=== PATIENT | male | born 1975 | race Caucasian/White ===

== ENCOUNTER 2018-05-04 22:10 | Emergency (ER) | payer BC ==
--- NOTE | 2018-05-04 23:44 | ER Document Report ---
ED Medical Screen (RME) - General Chief Complaint: Chest Pain Stated Complaint: CHEST PAIN Time Seen by Provider: 05/04/18 23:42 Mode of Arrival: Medic Information source: Patient Notes: 42-year-old male presents to ED for chest pain at 2015 this evening. He states it was when the football game first came on. He states he also had some shortness of breath and dizziness when he stood up. He said he did not know if the shortness of breath and dizziness were from anxiety from the pain or from the chest pain. He states the chest pain was off and on until about 2044 but has had no pain shortness of breath or dizziness since then. Patient is alert oriented respirations regular and unlabored speaking in full sentences. Patient states EMS told him there was a little change in his EKG is why they brought him to the emergency room. I have greeted and performed a rapid initial assessment of this patient. A comprehensive ED assessment and evaluation of the patient, analysis of test results and completion of medical decision making process will be conducted by an additional ED providers. TRAVEL OUTSIDE OF THE [place] IN LAST 30 DAYS: No - Related Data Allergies/Adverse Reactions: No Known Allergies Allergy (Verified 05/04/18 22:17) Physical Exam - Vital signs Vitals: Temp Pulse Resp BP Pulse Ox 98.6 F 86 16 130/96 H 97 05/04/18 23:02 05/04/18 23:02 05/04/18 23:02 05/04/18 23:02 05/04/18 23:02 Course - Vital Signs Vital signs: Temp Pulse Resp BP Pulse Ox 98.6 F 86 16 130/96 H 97 05/04/18 23:02 05/04/18 23:02 05/04/18 23:02 05/04/18 23:02 05/04/18 23:02 Doctor's Discharge - Discharge Referrals: SALVATORE LAIRD MD [Primary Care Provider] - Follow up as needed
[2018-05-05 00:40] LABS: ABSOLUTE BASOPHILS # (AUTO) 0.1 10^3/uL (0.0-0.2); ABSOLUTE EOSINOPHILS # (AUTO) 0.1 10^3/uL (0.0-0.6); ABSOLUTE LYMPHOCYTES (AUTO) 1.7 10^3/uL (0.5-4.7); ABSOLUTE MONOCYTES (AUTO) 0.6 10^3/uL (0.1-1.4); ABSOLUTE NEUT (AUTO) 9.9 10^3/uL (1.7-8.2); BASOPHILS % (AUTO) 0.5 % (0-2); EOSINOPHILS % (AUTO) 0.5 % (0-6); HEMATOCRIT 45.7 % (37.9-51.0); HEMOGLOBIN 15.9 g/dL (13.5-17.0); LYMPHOCYTES % (AUTO) 13.7 % (13-45); MEAN CORPUSCULAR HEMOGLOBIN 30.1 pg (27.0-33.4); MEAN CORPUSCULAR HGB CONC 34.7 g/dL (32.0-36.0); MEAN CORPUSCULAR VOLUME 87 fl (80-97); MONOCYTES % (AUTO) 5.1 % (3-13); PLATELET COUNT 220 10^3/uL (150-450); RED BLOOD COUNT 5.28 10^6/uL (4.35-5.55); RED CELL DISTRIBUTION WIDTH 13.4 % (11.5-14.0); SEGMENTED NEUTROPHILS % (AUTO) 80.2 % (42-78); TOTAL CELLS COUNTED % (AUTO) 100 %; WHITE BLOOD COUNT 12.4 10^3/uL (4.0-10.5)
[2018-05-05 00:57] LABS: ALANINE AMINOTRANSFERASE 29 U/L (21-72); ALBUMIN 4.6 g/dL (3.5-5.0); ALKALINE PHOSPHATASE 52 U/L (38-126); ANION GAP 11 (5-19); ASPARTATE AMINO TRANSFERASE 20 U/L (17-59); BILIRUBIN,DIRECT 0.5 mg/dL (0.0-0.4); BILIRUBIN,TOTAL 0.7 mg/dL (0.2-1.3); BLOOD UREA NITROGEN 20 mg/dL (7-20); CALCIUM 9.7 mg/dL (8.4-10.2); CARBON DIOXIDE 26 mmol/L (22-30); CHLORIDE 101 mmol/L (98-107); CREATINE KINASE 139 U/L (55-170); GLUCOSE 106 mg/dL (75-110); POTASSIUM 4.4 mmol/L (3.6-5.0); SODIUM 138.1 mmol/L (137-145); TOTAL PROTEIN 7.9 g/dL (6.3-8.2)
[2018-05-05 01:09] LABS: CREATINE KINASE MB 1.18 ng/mL (<4.55)
[2018-05-05 01:12] LABS: TROPONIN I < 0.012 ng/mL
--- NOTE | 2018-05-05 02:26 | ER Document Report ---
ED Cardiac - General Chief Complaint: Chest Pain Stated Complaint: CHEST PAIN Time Seen by Provider: 05/04/18 23:42 Mode of Arrival: Medic Notes: Patient is a 42-year-old male that comes to the emergency department for chief complaint of chest pain, he states that he was sitting after working outside for a while, he states that he felt sharp stabbing pain along the right side of his chest, it was occurring intermittently, he states he stood up and felt lightheaded briefly but this then resolved. He states symptoms resolved on its own. He came by EMS, was given 324 mg of aspirin. He denies any current symptoms. He denies any nausea or vomiting, shortness of breath. He denies any daily medications, he denies smoking, drinks alcohol infrequently, he denies recreational drugs. He states his mother had CAD, denies other significant family history. TRAVEL OUTSIDE OF THE [place] IN LAST 30 DAYS: No - Related Data Allergies/Adverse Reactions: No Known Allergies Allergy (Verified 05/04/18 22:17) Past Medical History - General Information source: Patient - Social History Smoking Status: Never Smoker Chew tobacco use (# tins/day): No Frequency of alcohol use: Occasional Drug Abuse: None Lives with: Family Family History: Reviewed & Not Pertinent Patient has suicidal ideation: No Patient has homicidal ideation: No - Past Medical History Cardiac Medical History: Reports: Hx Hypercholesterolemia Renal/ Medical History: Denies: Hx Peritoneal Dialysis - Immunizations Immunizations up to date: Yes Hx Diphtheria, Pertussis, Tetanus Vaccination: Yes Review of Systems - Review of Systems Constitutional: No symptoms reported EENT: No symptoms reported Cardiovascular: See HPI Respiratory: No symptoms reported Gastrointestinal: No symptoms reported Genitourinary: No symptoms reported Male Genitourinary: No symptoms reported Musculoskeletal: See HPI Skin: No symptoms reported Hematologic/Lymphatic: No symptoms reported Neurological/Psychological: See HPI Physical Exam - Vital signs Vitals: Temp Pulse Resp BP Pulse Ox 98.6 F 86 16 130/96 H 97 05/04/18 23:02 05/04/18 23:02 05/04/18 23:02 05/04/18 23:02 05/04/18 23:02 - Notes Notes: GENERAL: Alert, interacts well. No acute distress. HEAD: Normocephalic, atraumatic. EYES: Pupils equal, round, and reactive to light. Extraocular movements intact. ENT: Oral mucosa moist, tongue midline. [Nares patent, no nasal septal hematoma , TM's intact.] NECK: Full range of motion. Supple. Trachea midline. LUNGS: Clear to auscultation bilaterally, no wheezes, rales, or rhonchi. No respiratory distress. HEART: Regular rate and rhythm. No murmur ABDOMEN: Soft, non-tender. Non-distended. Bowel sounds present in all 4 quadrants. EXTREMITIES: Moves all 4 extremities spontaneously. No edema, normal radial and dorsalis pedis pulses bilaterally. No cyanosis. BACK: no cervical, thoracic, lumbar midline tenderness. No saddle anesthesia, normal distal neurovascular exam. NEUROLOGICAL: Alert and oriented x3. Normal speech. [cranial nerves II through XII grossly intact]. PSYCH: Normal affect, normal mood. SKIN: Warm, dry, normal turgor. No rashes or lesions noted. Course - Re-evaluation Re-evalutation: EKG shows sinus rhythm, borderline Q waves laterally, no T-wave inversions or ST segment changes in consecutive leads. Patient's heart score is only 1 (family history, history of hyperlipidemia treated). He does have borderline Q waves on the EKG laterally, no acute findings. 2 sets of negative troponins. Unremarkable chest x-ray and general workup. No symptoms after arrival. Atypical symptoms with sharp pain over the right side of the chest after working outside and then brief lightheadedness after immediately standing which resolved on its own. Discussed with patient, patient is requesting to leave. However patient does state that he will follow- up both with his primary care and with cardiology and close follow-up, states he wants to get a full cardiology evaluation but he wants to go home at this time. Discussed return precautions. Patient states understanding and agreement. - Vital Signs Vital signs: Temp Pulse Resp BP Pulse Ox 98.3 F 86 12 119/75 98 05/05/18 01:59 05/04/18 23:02 05/05/18 04:02 05/05/18 04:02 05/05/18 04:02 - Laboratory Result Diagrams: 05/05/18 00:30 05/05/18 00:30 Laboratory results interpreted by me: 05/05/18 05/05/18 00:30 00:30 WBC 12.4 H Seg Neutrophils % 80.2 H Absolute Neutrophils 9.9 H Direct Bilirubin 0.5 H Discharge - Discharge Clinical Impression: Right-sided chest pain Chest pain Qualifiers: Chest pain type: unspecified Qualified Code(s): R07.9 - Chest pain, unspecified Condition: Stable Disposition: HOME, SELF-CARE Additional Instructions: Your workup to this point is reassuring. Please follow-up closely with cardiology referral. Return if you worsen including returned or worsening pain , difficulty breathing, passing out, or any other concerning or worsening symptoms. Forms: Return to Work Referrals: ALBINO KUMAR MD [ACTIVE STAFF] - 05/07/18
[2018-05-05 04:51] VITALS: BP 119/75
--- NOTE | 2018-05-05 07:47 | RADIOLOGY REPORT (SQ) ---
Chest 2 view on 05/05/2018 at 1:01 AM CLINICAL INDICATION: Chest pain COMPARISON: None FINDINGS: The lungs are clear. Cardiac, hilar and mediastinal contours are within normal limits. Pulmonary vascularity is within normal limits. No bony abnormality is noted. IMPRESSION: No active disease.
--- NOTE | 2018-05-06 15:32 | EKG REPORT ---
SEVERITY:- BORDERLINE ECG - SINUS RHYTHM PROBABLE LATERAL INFARCT, OLD : Confirmed by: Consuelo Valenzuela MD 06-May-2018 15:31:45
== END 2018-05-05 04:58 | disposition home or self-care (01) ==
LOC: ER 22:10
DX: R07.9 Chest pain, unspecified (principal); E78.00 Pure hypercholesterolemia, unspecified
CPT/HCPCS: 36415; 71046; 80053; 82550; 82553; 84484; 85025; 93005; 93010; 99285

== ENCOUNTER 2018-08-16 11:31 | Emergency (ER) | payer BC ==
[2018-08-16 11:55] VITALS: BP 132/78
--- NOTE | 2018-08-16 12:18 | ER Document Report ---
ED Extremity Problem, Lower - General Chief Complaint: Knee Pain Stated Complaint: KNEE PAIN Time Seen by Provider: 08/16/18 12:00 Mode of Arrival: Ambulatory Information source: Patient Notes: 43-year-old male presented to ED for complaint of bilateral knee pain and swelling. He states he just received injections in his knees yesterday from Dr. Pascual. He states this was a 6 shot in a series. He states he has never had any reaction to any the shots prior to this 1 and now his both knees are red swollen and painful. He states no one ever gave him in the information about this type of reaction. He states he could not walk or sleep so he came to the emergency room to get examined. TRAVEL OUTSIDE OF THE [place] IN LAST 30 DAYS: No - HPI Patient complains to provider of: Pain, Swelling Location: Knee - Bilateral knees Occurred: Yesterday - Yesterday he received Synvisc injections in both knees by orthopedics Onset/Duration: Gradual, Persistent Quality of pain: Achy, Sharp Severity: Severe Pain Level: 5 - Patient offered ibuprofen and stated he had that at home Context: Other - Injections by orthopedic and bilateral knees yesterday Recent injury: No Associated symptoms: Painful ambulation Exacerbated by: Movement, Walking Relieved by: Elevation, Ice - Related Data Allergies/Adverse Reactions: No Known Allergies Allergy (Verified 08/16/18 11:32) Past Medical History - General Information source: Patient - Social History Smoking Status: Never Smoker Cigarette use (# per day): No Chew tobacco use (# tins/day): No Smoking Education Provided: No Frequency of alcohol use: None Drug Abuse: None Occupation: [employer] Lives with: Family Family History: Reviewed & Not Pertinent Patient has suicidal ideation: No Patient has homicidal ideation: No - Past Medical History Cardiac Medical History: Reports: Hx Hypercholesterolemia Pulmonary Medical History: Reports: Hx Sleep Apnea EENT Medical History: Reports: None Neurological Medical History: Reports: None Endocrine Medical History: Reports: None Renal/ Medical History: Reports: None Malignancy Medical History: Reports None GI Medical History: Reports: None Musculoskeletal Medical History: Reports Hx Arthritis, Reports Hx Musculoskeletal Deformity, Reports Hx Musculoskeletal Trauma Skin Medical History: Reports None Psychiatric Medical History: Reports: None Traumatic Medical History: Reports: None Infectious Medical History: Reports: None Past Surgical History: Reports: Hx Orthopedic Surgery - Orthoscopic left knee - Immunizations Immunizations up to date: Yes Hx Diphtheria, Pertussis, Tetanus Vaccination: Yes History of Influenza Vaccine for 05/2017 - 10/2017 Season: Yes Review of Systems - Review of Systems Constitutional: No symptoms reported EENT: No symptoms reported Cardiovascular: No symptoms reported Respiratory: No symptoms reported Gastrointestinal: No symptoms reported Genitourinary: No symptoms reported Male Genitourinary: No symptoms reported Musculoskeletal: Joint pain - Bilateral knee, Joint swelling - Bilateral knee Skin: No symptoms reported Hematologic/Lymphatic: No symptoms reported Neurological/Psychological: No symptoms reported -: Yes All other systems reviewed and negative Physical Exam - Vital signs Vitals: Temp Pulse Resp BP Pulse Ox 98.5 F 81 18 132/78 H 100 08/16/18 11:53 08/16/18 11:53 08/16/18 11:53 08/16/18 11:53 08/16/18 11:53 Interpretation: Normal - General General appearance: Appears well, Alert - HEENT Head: Normocephalic, Atraumatic Eyes: Normal Pupils: PERRL - Respiratory Respiratory status: No respiratory distress Chest status: Nontender Breath sounds: Normal Chest palpation: Normal - Cardiovascular Rhythm: Regular Heart sounds: Normal auscultation Murmur: No - Abdominal Inspection: Normal Distension: No distension Bowel sounds: Normal Tenderness: Nontender Organomegaly: No organomegaly - Back Back: Normal, Nontender - Extremities General upper extremity: Normal inspection, Nontender, Normal color, Normal ROM, Normal temperature General lower extremity: Normal temperature, Normal weight bearing. No: Debbi's sign Knee: Tender, Pain with ROM, Patellar tendon intact, Tender joint line, Other - Pain with ambulation, swelling - Neurological Neuro grossly intact: Yes Cognition: Normal Orientation: AAOx4 Herman Coma Scale Eye Opening: Spontaneous [place] Coma Scale Verbal: Oriented Herman Coma Scale Motor: Obeys Commands Herman Coma Scale Total: 15 Speech: Normal Motor strength normal: LUE, RUE, LLE, RLE Sensory: Normal - Psychological Associated symptoms: Normal affect, Normal mood - Skin Skin Temperature: Warm Skin Moisture: Dry Skin Color: Normal Course - Re-evaluation Re-evalutation: 08/16/18 12:[address] Owen concerning the patient's concerns with his knees. He states this is a normal reaction to the knee injections patient received and that he needs to take anti-inflammatories elevate and ice for the next 24-48 hours and the symptoms will be relieved. Patient was given information concerning anti-inflammatories and an ice will discharge patient home. - Vital Signs Vital signs: Temp Pulse Resp BP Pulse Ox 98.5 F 81 18 132/78 H 100 08/16/18 11:53 08/16/18 11:53 08/16/18 11:53 08/16/18 11:53 08/16/18 11:53 Discharge - Discharge Clinical Impression: Pain and swelling after knee injections Condition: Stable Disposition: HOME, SELF-CARE Additional Instructions: I spoke with Dr. Owen the aviation medicine specialist, he states that this is a common reaction to the injections you received in your knee. Stated you need to elevate ice and use anti-inflammatories for the next 24-48 hours and the symptoms will be relieved. Anti-Inflammatory Medication received a prescr You state you have an antiinflammatory agent at home. This is an excellent, safe drug for pain control. In addition, it has potent antiinflammatory effects which are beneficial, especially in the treatment of injuries, arthritis, or tendonitis. It's best to take this medicine with food. Persons with ulcer disease or allergy to aspirin should notify their physician of this before taking this drug. Take the medication exactly as prescribed. Don't take additional doses unless instructed to do so by your doctor. If you develop wheezing, shortness of breath, hives, faintness, stomach pain, vomiting, or dark black stools, return for re-evaluation at once. Ice & Elevation Apply ice packs frequently against the painful area. Many different schedules are recommended, such as "20 minutes on, 20 minutes off" or "one hour ice, two hours rest." If you need to work, you may need to go longer between ice treatments. You should plan to have the area ice packed AT LEAST one-fourth of the time. The ice should be applied over the wrap, tape, or splint, or over a layer of cloth -- not directly against the skin. Some ice bags have a built-in cloth and can be put directly on the skin. Your injured part should be elevated as much as possible over the next 48 hours. Try to keep the injury above the level of the heart. Avoid use of the injured area. Elevation and rest will decrease the swelling. FOLLOW-UP CARE: If you have been referred to a physician for follow-up care, call the physicians office for an appointment as you were instructed or within the next two days. If you experience worsening or a significant change in your symptoms, notify the physician immediately or return to the Emergency Department at any time for re-evaluation. Forms: Elevated Blood Pressure Referrals: CHARO PHAN MD [ACTIVE STAFF] - Follow up as needed
== END 2018-08-16 12:24 | disposition home or self-care (01) ==
LOC: ER 11:31
DX: M25.561 Pain in right knee (principal); M25.562 Pain in left knee; M79.89 Other specified soft tissue disorders; Z98.890 Other specified postprocedural states
CPT/HCPCS: 99283

== ENCOUNTER 2018-08-17 15:11 | Emergency (ER) | payer BC ==
--- NOTE | 2018-08-17 15:53 | ER Document Report ---
ED Medical Screen (RME) - General Chief Complaint: Knee Pain Stated Complaint: KNEE PAIN Time Seen by Provider: 08/17/18 15:45 Notes: 43-year-old male who had Synvisc injections in both knees a few days ago now complaining of severe pain in both knees with the left knee being more painful than the right knee. No fever or chills. No redness. No other major symptoms at this time. I have greeted and performed a rapid initial assessment of this patient. A comprehensive ED assessment and evaluation of the patient, analysis of test results and completion of the medical decision making process will be conducted by additional ED providers. TRAVEL OUTSIDE OF THE [place] IN LAST 30 DAYS: No - Related Data Allergies/Adverse Reactions: No Known Allergies Allergy (Verified 08/16/18 11:32) Past Medical History - Social History Chew tobacco use (# tins/day): No Frequency of alcohol use: None Drug Abuse: None - Past Medical History Cardiac Medical History: Reports: Hx Hypercholesterolemia Pulmonary Medical History: Reports: Hx Sleep Apnea Renal/ Medical History: Denies: Hx Peritoneal Dialysis Musculoskeltal Medical History: Reports Hx Arthritis, Reports Hx Musculoskeletal Deformity, Reports Hx Musculoskeletal Trauma Past Surgical History: Reports: Hx Orthopedic Surgery - Orthoscopic left knee - Immunizations Immunizations up to date: Yes Hx Diphtheria, Pertussis, Tetanus Vaccination: Yes History of Influenza Vaccine for 05/2017 - 10/2017 Season: Yes Physical Exam - Vital signs Vitals: Temp Pulse Resp BP Pulse Ox 98.2 F 73 18 120/75 98 08/17/18 15:22 08/17/18 15:22 08/17/18 15:22 08/17/18 15:22 08/17/18 15:22 Course - Vital Signs Vital signs: Temp Pulse Resp BP Pulse Ox 98.2 F 73 18 120/75 98 08/17/18 15:22 08/17/18 15:22 08/17/18 15:22 08/17/18 15:22 08/17/18 15:22 - Laboratory Result Diagrams: 08/17/18 16:04 08/17/18 16:04 Laboratory results interpreted by me: 08/17/18 08/17/18 16:04 16:04 ESR 31 H C-Reactive Protein 32.4 H
[2018-08-17 16:14] LABS: ABSOLUTE BASOPHILS # (AUTO) 0.1 10^3/uL (0.0-0.2); ABSOLUTE EOSINOPHILS # (AUTO) 0.3 10^3/uL (0.0-0.6); ABSOLUTE LYMPHOCYTES (AUTO) 1.6 10^3/uL (0.5-4.7); ABSOLUTE MONOCYTES (AUTO) 0.9 10^3/uL (0.1-1.4); ABSOLUTE NEUT (AUTO) 7.2 10^3/uL (1.7-8.2); BASOPHILS % (AUTO) 0.8 % (0-2); EOSINOPHILS % (AUTO) 2.9 % (0-6); HEMATOCRIT 47.3 % (37.9-51.0); HEMOGLOBIN 16.3 g/dL (13.5-17.0); LYMPHOCYTES % (AUTO) 15.6 % (13-45); MEAN CORPUSCULAR HEMOGLOBIN 29.3 pg (27.0-33.4); MEAN CORPUSCULAR HGB CONC 34.4 g/dL (32.0-36.0); MEAN CORPUSCULAR VOLUME 85 fl (80-97); MONOCYTES % (AUTO) 8.8 % (3-13); PLATELET COUNT 206 10^3/uL (150-450); RED BLOOD COUNT 5.54 10^6/uL (4.35-5.55); SEGMENTED NEUTROPHILS % (AUTO) 71.9 % (42-78); TOTAL CELLS COUNTED % (AUTO) 100 %
[2018-08-17 16:34] LABS: ALANINE AMINOTRANSFERASE 72 U/L (21-72); ALBUMIN 4.5 g/dL (3.5-5.0); ALKALINE PHOSPHATASE 67 U/L (38-126); ANION GAP 8 (5-19); ASPARTATE AMINO TRANSFERASE 54 U/L (17-59); BILIRUBIN,DIRECT 0.3 mg/dL (0.0-0.4); BILIRUBIN,TOTAL 0.5 mg/dL (0.2-1.3); BLOOD UREA NITROGEN 10 mg/dL (7-20); C-REACTIVE PROTEIN 32.4 mg/L (<10.0); CALCIUM 9.4 mg/dL (8.4-10.2); CARBON DIOXIDE 29 mmol/L (22-30); CHLORIDE 102 mmol/L (98-107); GLUCOSE 108 mg/dL (75-110); POTASSIUM 4.3 mmol/L (3.6-5.0); SODIUM 139.4 mmol/L (137-145); TOTAL PROTEIN 7.5 g/dL (6.3-8.2)
[2018-08-17 16:50] LABS: ERYTHROCYTE SEDIMENTATION RATE 31 mm/hr (0-15)
[2018-08-17] MEDS ORDERED: MORPHINE SULFATE 10 MG/ML INJ IM ONE (17:15)
[2018-08-17] MEDS ORDERED: KETOROLAC TROMETHAMINE 60 MG/2 ML SDV IM ONE (17:15)
[2018-08-17] MEDS ORDERED: PREDNISONE 20 MG TABLET PO ONE (17:18)
[2018-08-17] MEDS ORDERED: HYDROCODONE/ACETAMINOPHEN 5-325 MG (6 TAB/ER DISP) PO PRN (17:36)
--- NOTE | 2018-08-17 17:38 | ER Document Report ---
ED General - General Chief Complaint: Knee Pain Stated Complaint: KNEE PAIN Time Seen by Provider: 08/17/18 15:45 Notes: Patient is a 43-year-old male with history of osteoarthritis that presents to the emergency department for chief complaint of bilateral knee pain. Patient states that on Saturday he had bilateral Synvisc injections, performed by his orthopedic surgeon, shortly after that in the evening he developed significant swelling in his knees bilaterally, he did come to the ED yesterday, was advised ice therapy, and elevation and to follow-up. 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 He currently rates his pain as a 8 out of 10, worse with movements describes as a constant aching sensation. The pain is mainly located across the top of his knees bilaterally. He denies any associated numbness, weakness or tingling. Past Medical History: Osteoarthritis, hypertension, hyperlipidemia Past Surgical History: Meniscal surgery, knee scope Social History: Denies tobacco, alcohol or drug use. Family History: Reviewed and noncontributory for presenting illness Allergies: Reviewed, see documented allergy list. REVIEW OF SYSTEMS: Other than noted above, the 12 point review of systems was reviewed with the patient and were negative, all pertinent findings are included in the HPI. PHYSICAL EXAMINATION: Vital signs reviewed, nursing noted reviewed. GENERAL: Well-appearing, well-nourished and appears uncomfortable HEAD: Atraumatic, normocephalic. EYES: Eyes appear normal, extraocular movements intact, sclera anicteric, conjunctiva are normal. ENT: nares patent NECK: Normal range of motion, supple without lymphadenopathy LUNGS: Breath sounds clear to auscultation bilaterally and equal. No wheezes rales or rhonchi. HEART: Regular rate and rhythm without murmurs EXTREMITIES: Bilateral moderate to severe knee effusions, without erythema or warmth. Pain with knee flexion, the joints are stable bilaterally. There is tenderness to palpation across the suprapatellar regions bilaterally of the knees. The rest of the extremity exam is grossly unremarkable. NEUROLOGICAL: No focal neurological deficits. Moves all extremities spontaneously Motor and sensory grossly intact on exam. PSYCH: Normal mood, normal affect. SKIN: Warm, Dry, normal turgor, no rashes or lesions noted on exposed skin TRAVEL OUTSIDE OF THE [place] IN LAST 30 DAYS: No - Related Data Allergies/Adverse Reactions: No Known Allergies Allergy (Verified 08/16/18 11:32) Past Medical History - Social History Smoking Status: Never Smoker Chew tobacco use (# tins/day): No Frequency of alcohol use: None Drug Abuse: None Family History: Reviewed & Not Pertinent Patient has suicidal ideation: No Patient has homicidal ideation: No - Past Medical History Cardiac Medical History: Reports: Hx Hypercholesterolemia Pulmonary Medical History: Reports: Hx Sleep Apnea Renal/ Medical History: Denies: Hx Peritoneal Dialysis Musculoskeletal Medical History: Reports Hx Arthritis, Reports Hx Musculoskeletal Deformity, Reports Hx Musculoskeletal Trauma Past Surgical History: Reports: Hx Orthopedic Surgery - Orthoscopic left knee - Immunizations Immunizations up to date: Yes Hx Diphtheria, Pertussis, Tetanus Vaccination: Yes Physical Exam - Vital signs Vitals: Temp Pulse BP Pulse Ox 98.2 F 73 120/75 98 08/17/18 15:20 08/17/18 15:20 08/17/18 15:20 08/17/18 15:20 Course - Re-evaluation Re-evalutation: Patient seen and examined, vital signs reviewed, on my exam the patient had bilateral knee effusions, without warmth or erythema, low suspicion for septic arthropathy, however the triage provider ordered blood work, including a CRP and ESR, there were only mildly elevated in the 30s for both, low suspicion for septic joints, at this point I discussed the case with the orthopedic surgeon on-call Dr. Prince, who agreed that this is unlikely to be septic arthropathy particularly in bilateral, likely an acute inflammatory reaction from the Synvisc injections, patient was treated in the ED with a dose of IM morphine, and Toradol, he is also given a dose of prednisone, and prescribed a Medrol Dosepak as recommended by the orthopedic surgeon, he states he will see him in the office tomorrow, to follow-up, and possible arthrocentesis. Patient was agreeable to this plan of care, and discharged to home. He was given instructions and reasons to return to the emergency department. Laboratory 08/17/18 08/17/18 16:04 16:04 WBC 10.0 RBC 5.54 Hgb 16.3 Hct 47.3 MCV 85 MCH 29.3 MCHC 34.4 RDW 13.0 Plt Count 206 Seg Neutrophils % 71.9 Lymphocytes % 15.6 Monocytes % 8.8 Eosinophils % 2.9 Basophils % 0.8 Absolute Neutrophils 7.2 Absolute Lymphocytes 1.6 Absolute Monocytes 0.9 Absolute Eosinophils 0.3 Absolute Basophils 0.1 ESR 31 H Sodium 139.4 Potassium 4.3 Chloride 102 Carbon Dioxide 29 Anion Gap 8 BUN 10 Creatinine 0.80 Est GFR ( Amer) > 60 Est GFR (Non-Af Amer) > 60 Glucose 108 Calcium 9.4 Total Bilirubin 0.5 Direct Bilirubin 0.3 Neonat Total Bilirubin Not Reportable Neonat Direct Bilirubin Not Reportable Neonat Indirect Bili Not Reportable AST 54 ALT 72 Alkaline Phosphatase 67 C-Reactive Protein 32.4 H Total Protein 7.5 Albumin 4.5 - Vital Signs Vital signs: Temp Pulse Resp BP Pulse Ox 98.5 F 82 16 125/79 100 08/17/18 17:51 08/17/18 17:51 08/17/18 17:51 08/17/18 17:51 08/17/18 17:51 - Laboratory Result Diagrams: 08/17/18 16:04 08/17/18 16:04 Laboratory results interpreted by me: 08/17/18 08/17/18 16:04 16:04 ESR 31 H C-Reactive Protein 32.4 H Discharge - Discharge Clinical Impression: Bilateral knee effusions Condition: Stable Disposition: HOME, SELF-CARE Instructions: Knee Effusion ([facility]) Additional Instructions: Please follow-up with Dr. Prince tomorrow, in the office, call in the morning, please take the medications as prescribed otherwise. Continue to use ice or warm compresses, to help with the swelling, you can also use Gold wraps as well. If you have fevers, or develop redness or worsening swelling, do not hesitate to return sooner to the emergency department. Prescriptions: Methylprednisolone [Medrol Dosepack (4 mg/Tab) 21 Tab/Dosepak] 4 mg PO ASDIR #21 [email or web address] Referrals: SANDY PRINCE MD [ACTIVE STAFF] - Follow up tomorrow
[2018-08-17 17:55] VITALS: BP 125/79
== END 2018-08-17 17:55 | disposition home or self-care (01) ==
LOC: ER 15:11
DX: M25.462 Effusion, left knee (principal); M25.461 Effusion, right knee; M25.562 Pain in left knee; M25.561 Pain in right knee; I10 Essential (primary) hypertension; E78.00 Pure hypercholesterolemia, unspecified
CPT/HCPCS: 99283; 96372; 36415; 85025; 85652; 86140; 80053; J1885; J2270; J7512

== ENCOUNTER → 2018-10-29 | Outpatient (CLI) | payer BC ==
--- NOTE | 2018-10-29 12:55 | RADIOLOGY REPORT (SQ) ---
EXAM DESCRIPTION: CHEST PA/LATERAL COMPLETED DATE/TIME: 10/29/2018 12:45 pm REASON FOR STUDY: ENCOUNTER FOR OTHER SPECIFIED SPECIAL EXAMINATIONS COMPARISON: 05/05/2018. EXAM PARAMETERS: NUMBER OF VIEWS: two views TECHNIQUE: Digital Frontal and Lateral radiographic views of the chest acquired. RADIATION DOSE: NA LIMITATIONS: none FINDINGS: LUNGS AND PLEURA: No opacities, masses or pneumothorax. No pleural effusion. MEDIASTINUM AND HILAR STRUCTURES: No masses or contour abnormalities. HEART AND VASCULAR STRUCTURES: Heart normal size. No evidence for failure. BONES: No acute findings. HARDWARE: None in the chest. OTHER: No other significant finding. IMPRESSION: NO SIGNIFICANT RADIOGRAPHIC FINDING IN THE CHEST. TECHNICAL DOCUMENTATION: JOB ID: [id number] [employer]- All Rights Reserved Reading location - IP/workstation name: [email or web address]
[2018-10-29 13:08] LABS: APPEARANCE,URINE CLEAR; BILIRUBIN,URINE NEGATIVE (NEGATIVE); COLOR,URINE YELLOW; GLUCOSE, URINE NEGATIVE (NEGATIVE); KETONES,URINE NEGATIVE (NEGATIVE); LEUKOCYTE ESTERASE,URINE NEGATIVE (NEGATIVE); NITRITE,URINE NEGATIVE (NEGATIVE); PROTEIN,URINE NEGATIVE (NEGATIVE); URINE SPECIFIC GRAVITY 1.016; UROBILINOGEN,URINE NEGATIVE mg/dL (<2.0)
[2018-10-29 13:10] LABS: ABSOLUTE BASOPHILS # (AUTO) 0.1 10^3/uL (0.0-0.2); ABSOLUTE EOSINOPHILS # (AUTO) 0.1 10^3/uL (0.0-0.6); ABSOLUTE LYMPHOCYTES (AUTO) 1.7 10^3/uL (0.5-4.7); ABSOLUTE MONOCYTES (AUTO) 0.6 10^3/uL (0.1-1.4); ABSOLUTE NEUT (AUTO) 5.9 10^3/uL (1.7-8.2); BASOPHILS % (AUTO) 0.6 % (0-2); EOSINOPHILS % (AUTO) 1.3 % (0-6); HEMATOCRIT 41.8 % (37.9-51.0); HEMOGLOBIN 14.9 g/dL (13.5-17.0); LYMPHOCYTES % (AUTO) 20.2 % (13-45); MEAN CORPUSCULAR HEMOGLOBIN 29.6 pg (27.0-33.4); MEAN CORPUSCULAR HGB CONC 35.8 g/dL (32.0-36.0); MEAN CORPUSCULAR VOLUME 83 fl (80-97); MONOCYTES % (AUTO) 6.9 % (3-13); PLATELET COUNT 215 10^3/uL (150-450); RED BLOOD COUNT 5.06 10^6/uL (4.35-5.55); RED CELL DISTRIBUTION WIDTH 13.2 % (11.5-14.0); TOTAL CELLS COUNTED % (AUTO) 100 %; WHITE BLOOD COUNT 8.3 10^3/uL (4.0-10.5)
--- NOTE | 2018-10-29 13:14 | EKG REPORT ---
SEVERITY:- BORDERLINE ECG - SINUS RHYTHM PROBABLE LATERAL INFARCT, OLD : Confirmed by: Fahad Schwab MD 29-Oct-2018 13:13:36
[2018-10-29 13:38] LABS: ANION GAP 11 (5-19); BLOOD UREA NITROGEN 18 mg/dL (7-20); CARBON DIOXIDE 27 mmol/L (22-30); CHLORIDE 100 mmol/L (98-107); GLUCOSE 88 mg/dL (75-110); POTASSIUM 4.6 mmol/L (3.6-5.0); SODIUM 138.1 mmol/L (137-145)
== END ==
LOC: OD 12:03
PROVIDERS: ATTEND Orthopaedic Surgery
DX: Z01.89 Encounter for other specified special examinations (principal)
CPT/HCPCS: 36415; 71046; 80048; 81001; 85025; 93005; 93010

== ENCOUNTER 2018-11-19 05:16 | Day surgery (SDC) | payer BC ==
[~2018-11-19 05:16] MED LIST: CEFAZOLIN INJ 1 GM VIAL IV PRN; IBUPROFEN 800 MG in NORMAL SALINE 250 ML IV PRN; LACTATED RINGERS 1000 ML IV PRN; LIDOCAINE 0.5% INJ-PF (5 MG/ML) 50 ML SDV SUBCUT PRN; VANCOMYCIN HCL 1,000 MG in DEXTROSE 5%-WATER 250 ML IV PRN
[2018-11-19] MEDS ORDERED: OXYCODONE HCL SR 10 MG TABLET PO ONE (05:21)
[2018-11-19] MEDS ORDERED: CEFAZOLIN INJ 1 GM VIAL ONE (05:22)
[2018-11-19] MEDS ORDERED: PANTOPRAZOLE SODIUM 20 MG TABLET.DR PO ONE (05:22)
[2018-11-19] MEDS ORDERED: FENTANYL CITRATE INJ/PF 100 MCG/2 ML AMPUL ONE (06:50)
[2018-11-19] MEDS ORDERED: ONDANSETRON HCL INJ/PF 4 MG/2 ML SDV ONE (06:50)
[2018-11-19] MEDS ORDERED: DEXAMETHASONE SOD PHOSPHATE INJ 4 MG/1 ML VIAL ONE (06:50)
[2018-11-19] MEDS ORDERED: MIDAZOLAM 2 MG/2 ML INJ ONE (06:50)
[2018-11-19] MEDS ORDERED: TRANEXAMIC ACID INJ/PF 1,000 MG/10 ML SDV IV ONE ×2 (06:50→10:00)
[2018-11-19] MEDS ORDERED: ACETAMINOPHEN 1,000 MG/100 ML RTUPB IV ONE (06:51)
[2018-11-19] MEDS ORDERED: PROPOFOL INJ 200 MG/20 ML VIAL IV ONE ×2 (06:51→09:01)
[2018-11-19] MEDS ORDERED: MORPHINE SULFATE 10 MG/ML INJ ONE (06:51)
[2018-11-19] MEDS ORDERED: THROMBIN (BOVINE) 5000 UNIT EPITAXIS KIT ONE (07:09)
[2018-11-19] MEDS ORDERED: BUPIVACAINE HCL 0.25% /EPINEPHRINE INJ/PF 30 ML SDV ONE (07:09)
[2018-11-19] MEDS ORDERED: THROMBIN (BOVINE) TOPICAL 20000 UNIT VIAL ONE (07:09)
[2018-11-19] MEDS ORDERED: MORPHINE SULFATE 10 MG/ML INJ IV PRN ×4 (08:08→08:33)
[2018-11-19] MEDS ORDERED: PROMETHAZINE HCL INJ 25 MG/1 ML VIAL IV PRN ×2 (08:08)
[2018-11-19] MEDS ORDERED: MEPERIDINE HCL/PF INJ 25 MG/1 ML DISP.SYRIN IV PRN (08:08)
[2018-11-19] MEDS ORDERED: FENTANYL CITRATE INJ/PF 100 MCG/2 ML AMPUL IV PRN ×3 (08:08)
[2018-11-19] MEDS ORDERED: DIPHENHYDRAMINE HCL 50 MG/ML VIAL IV PRN ×2 (08:08→08:33)
--- NOTE | 2018-11-19 08:32 | Operative Report ---
Operative Report DATE OF SURGERY: 11/19/18 PREOPERATIVE DIAGNOSIS: Left knee arthritis OPERATION: Left knee arthroplasty SURGEON: SANDY PRINCE ANESTHESIA: Spinal TISSUE REMOVED OR ALTERED: Bone to pathology ESTIMATED BLOOD LOSS: 100 PROCEDURE: Implants used: Femur: Alex triathlon size 7 CR cementless femur Tibia: 6 cementless tibia Tibial liner: 9 mm CS insert Patella: 88 mm cementless patella Procedure with the patient supine on the operating table the left the limb is prepped and draped in a sterile fashion. The limb was elevated for exsanguination and the tourniquet inflated to 280 torr. A standard midline median parapatellar approach the knee is taken. Access is gained to the femoral canal through the intercondylar notch. Intramedullary alignment instrumentation used to resect 10 mm of distal femur in 5 of valgus. Sizing guide indicated a size 7 femur. Appropriate cutting jig is then used to fashion anterior posterior and chamfer cuts. A trial reduction femurs performed and this is judged to be adequate. Attention was next turned to the tibia. Using an extra medullary alignment system 9 millimeters was resected off the lateral tibial plateau. This is sized to a size 6 tibia. A trial reduction was now performed with a 7 femur and a 6 tibia using a 9 millimeters spacer. It is full extension and central patellofemoral tracking. The articular surface the patella was next resected using an oscillating saw. All trial implants were removed. t the above implants are impacted into place. the tourniquet was deflated hemostasis obtained the wound is then closed in layers using interrupted Vicryl followed by layla. A sterile compressive dressing was applied and the patient returned to recovery room in satisfactory condition.
[2018-11-19] MEDS ORDERED: MAG HYDROX/AL HYDROX/SIMETH SUSP 30 ML UDCUP PO PRN (08:33)
[2018-11-19] MEDS ORDERED: ONDANSETRON HCL INJ/PF 4 MG/2 ML SDV IV PRN (08:33)
[2018-11-19] MEDS ORDERED: ZOLPIDEM TARTRATE 5 MG TABLET PO PRN (08:33)
[2018-11-19] MEDS ORDERED: RINGERS SOLUTION,LACTATED 1,000 ML IV PRN (08:33)
[2018-11-19] MEDS ORDERED: ACETAMINOPHEN 325 MG TABLET PO PRN (08:33)
[2018-11-19] MEDS ORDERED: OXYCODONE HCL IR 5 MG TABLET PO PRN (08:33)
[2018-11-19] MEDS ORDERED: ONDANSETRON 4 MG TAB.RAPDIS PO PRN (08:33)
--- NOTE | 2018-11-19 09:26 | RADIOLOGY REPORT (SQ) ---
EXAM DESCRIPTION: KNEE LEFT 2 VIEWS COMPLETED DATE/TIME: 11/19/2018 9:17 am REASON FOR STUDY: Post OP -Long Cassette in PACU M17.12 UNILATERAL PRIMARY OSTEOARTHRITIS, LEFT KNE E COMPARISON: None. NUMBER OF VIEWS: Two view(s). TECHNIQUE: Digital radiographic images of the left knee post-procedure. LIMITATIONS: None. FINDINGS: BONES: No worrisome or unexpected findings post-procedure. DEVICE: Total knee arthroplasty. SOFT TISSUES: No worrisome findings. Expected postoperative soft tissue changes. IMPRESSION: SATISFACTORY POSTOPERATIVE LEFT KNEE. TECHNICAL DOCUMENTATION: JOB ID: [id number] [employer]- All Rights Reserved Reading location - IP/workstation name: [email or web address]
[2018-11-19] MEDS: METOPROLOL SUCCINATE 50 MG TAB.SR.24H PO SCH (11:17)
[2018-11-19] MEDS: GABAPENTIN 100 MG CAPSULE PO SCH ×2 (11:18→17:18)
[2018-11-19] MEDS: PRENATAL VITAMIN W DHA CAPSULE PO SCH (11:18)
[2018-11-19] MEDS: SENNOSIDES/DOCUSATE 8.6-50 MG 1 EACH TABLET PO SCH ×2 (11:19→17:18)
[2018-11-19] MEDS: OXYCODONE HCL SR 10 MG TABLET PO SCH ×2 (11:19→22:32)
[2018-11-19] MEDS: ASPIRIN 81 MG TABLET, ENT COATED PO SCH (11:20)
[2018-11-19] MEDS: IBUPROFEN 800 MG in NORMAL SALINE 250 ML IV SCH ×2 (14:07→22:33)
[2018-11-19] MEDS: MORPHINE SULFATE 10 MG/ML INJ IV PRN (14:56)
[2018-11-19] MEDS ORDERED: VANCOMYCIN HCL 1,000 MG in DEXTROSE 5%-WATER 250 ML IV ONE (20:33)
[2018-11-20] MEDS: IBUPROFEN 800 MG in NORMAL SALINE 250 ML IV SCH (05:16)
[2018-11-20] MEDS ORDERED: PANTOPRAZOLE SODIUM 40 MG TABLET.DR PO SCH (06:00)
[2018-11-20 06:10] LABS: HEMATOCRIT 37.5 % (37.9-51.0); HEMOGLOBIN 13.1 g/dL (13.5-17.0); MEAN CORPUSCULAR HEMOGLOBIN 29.2 pg (27.0-33.4); MEAN CORPUSCULAR HGB CONC 34.8 g/dL (32.0-36.0); MEAN CORPUSCULAR VOLUME 84 fl (80-97); PLATELET COUNT 173 10^3/uL (150-450); RED BLOOD COUNT 4.48 10^6/uL (4.35-5.55); RED CELL DISTRIBUTION WIDTH 13.5 % (11.5-14.0); WHITE BLOOD COUNT 13.4 10^3/uL (4.0-10.5)
[2018-11-20 06:27] LABS: ANION GAP 7 (5-19); BLOOD UREA NITROGEN 15 mg/dL (7-20); CALCIUM 9.1 mg/dL (8.4-10.2); CARBON DIOXIDE 25 mmol/L (22-30); CHLORIDE 104 mmol/L (98-107); GLUCOSE 158 mg/dL (75-110); SODIUM 135.9 mmol/L (137-145)
--- NOTE | 2018-11-20 06:44 | PDOC DISCHARGE SUMMARY ---
General - Admit/Disc Date/PCP Admission Date/Primary Care Provider: 11/19/18 05:16 JUAN VARGHESE PA-C Discharge Date: 11/20/18 - Discharge Diagnosis (1) Arthritis of left knee Is this a current diagnosis for this admission?: Yes - Additional Information Resuscitation Status: Full Code Home Medications: Diclofenac Sodium [Voltaren] 2 gm TOP QID MDD APPLY TO RIGHT LEG 11/19/18 Fluvastatin Sodium [Lescol] 40 mg PO QHS 11/19/18 Loratadine [Claritin 10 mg Tablet] 10 mg PO DAILY 11/19/18 Metoprolol Tartrate [Lopressor 25 mg Tablet] 25 mg PO BID 11/19/18 History of Present Illness History of Present Illness: MANUEL MEADOWS is a 43 year old male Patient is a 43-year-old white male with progressive left knee pain and 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 Patient is admitted for elective left knee arthroplasty. Hospital Course Hospital Course: Patient is admitted through the operating room he undergoes uncomplicated left knee arthroplasty. Is returned to floor in satisfactory condition. He has some prolonged anesthetic effects which limit his ability to progress with physical therapy on the day of surgery although he is able to ambulate 20 feet. Compressive dressing is removed on the morning of postop day 1. The underlying OpSite is clean dry and intact. There is minimal distal pedal edema. Distal neurovascular examination is intact. Physical Exam Vital Signs: Temp Pulse Resp BP Pulse Ox 36.7 C 83 16 131/76 H 100 11/19/18 23:49 11/19/18 23:49 11/19/18 23:49 11/19/18 23:49 11/19/18 23:49 Intake & Output 11/18/18 11/19/18 11/20/18 06:59 06:59 06:59 Intake Total 0 5744 Output Total 100 Balance 0 5644 Weight 122.4 kg Physical Exam: Middle-aged white male lying in bed in no acute distress. is nearby in a recliner. General appearance: PRESENT: no acute distress, well-nourished Head exam: PRESENT: normocephalic Respiratory exam: PRESENT: unlabored Cardiovascular exam: PRESENT: RRR Pulses: PRESENT: +1 pedal pulses bilateral Vascular exam: PRESENT: normal capillary refill GI/Abdominal exam: PRESENT: soft Rectal exam: PRESENT: deferred Extremities exam: PRESENT: other - Compressive dressings removed from the left lower extremity. The underlying OpSite dressing is clean dry and intact. There is minimal pedal edema. Distal neurovascular examination is intact. Neurological exam: PRESENT: alert, awake, oriented to person, oriented to place, oriented to time, oriented to situation. ABSENT: motor sensory deficit Psychiatric exam: PRESENT: appropriate affect, normal mood. ABSENT: homicidal ideation, suicidal ideation Skin exam: PRESENT: dry, intact, warm. ABSENT: cyanosis, rash Results Laboratory Results: 11/20/18 05:28 11/20/18 05:28 11/20/18 11/20/18 05:28 05:28 WBC 13.4 H RBC 4.48 Hgb 13.1 L Hct 37.5 L MCV 84 MCH 29.2 MCHC 34.8 RDW 13.5 Plt Count 173 Sodium 135.9 L Potassium 4.0 Chloride 104 Carbon Dioxide 25 Anion Gap 7 BUN 15 Creatinine 0.86 Est GFR ( Amer) > 60 Est GFR (Non-Af Amer) > 60 Glucose 158 H Calcium 9.1 Impressions: Knee X-Ray 11/19/18 08:34 IMPRESSION: SATISFACTORY POSTOPERATIVE LEFT KNEE. Status: Imported from [facility] Qual[facility] - * PATIENT BEING DISCHARGED WITH ANY OF THE FOLLOWING DIAGNOSIS: No VTE patient discharged on overlapping Therapy?: Yes Plan Discharge Plan: Patient be seen by physical therapy this morning. He then will be discharged home with home health services and DME. Follow-up with Dr. Russell and [facility] for surgery in 2 weeks for staple removal. Time Spent: Less than 30 Minutes
[2018-11-20] MEDS: MORPHINE SULFATE 10 MG/ML INJ IV PRN (07:34)
[2018-11-20] MEDS: PRENATAL VITAMIN W DHA CAPSULE PO SCH (09:01)
[2018-11-20] MEDS: SENNOSIDES/DOCUSATE 8.6-50 MG 1 EACH TABLET PO SCH (09:02)
[2018-11-20] MEDS: OXYCODONE HCL SR 10 MG TABLET PO SCH (09:02)
[2018-11-20] MEDS: GABAPENTIN 100 MG CAPSULE PO SCH (09:02)
[2018-11-20] MEDS: ASPIRIN 81 MG TABLET, ENT COATED PO SCH (09:03)
[2018-11-20] MEDS: METOPROLOL SUCCINATE 50 MG TAB.SR.24H PO SCH (09:05)
[2018-11-20 10:38] VITALS: BP 131/76
[2018-11-20] MEDS: FLUVASTATIN PO SCH (11:14)
[2018-11-21] MEDS ORDERED: BUPIVACAINE INJ/PF LIPOSOME/PF 266 MG/20 ML SDV INJ PRN (05:00)
[2018-11-21] MEDS ORDERED: PANTOPRAZOLE SODIUM 20 MG TABLET.DR PO PRN (05:00)
[2018-11-21] MEDS ORDERED: OXYCODONE HCL SR 10 MG TABLET PO PRN (05:00)
== END 2018-11-20 11:12 | disposition home health service (06) ==
LOC: UNDOADMOB 05:16 → INOR 05:16 → INTOOBSV 05:16 → OROUT 05:16 → EDSTATUS 07:30 → 4S 09:37 → INOR 09:37 → 4S 09:37 → UNDODISOB 11-20 11:12 → OROUT 11-20 11:12
PROVIDERS: ATTEND Orthopaedic Surgery
DX: M17.32 Unilateral post-traumatic osteoarthritis, left knee (principal); J45.909 Unspecified asthma, uncomplicated; I10 Essential (primary) hypertension; E66.9 Obesity, unspecified; Z68.33 Body mass index [BMI] 33.0-33.9, adult; Z79.899 Other long term (current) drug therapy; E78.00 Pure hypercholesterolemia, unspecified
CPT/HCPCS: 36415; 85027; 80048; 88304 ×2; 88311; 73560; 94799; 97530; 97110; 97116 ×2; 97163; 97166; 27440; C1776; J2250; J3490 ×10; J0690; J1100; J3010; J2270 ×2; J2405; J7060; J7050; J2704; J3370; J0131; J1741; 01402; 88305

== ENCOUNTER 2019-03-25 05:18 | Inpatient (IN) | payer BC ==
[~2019-03-25 05:18] MED LIST changes: +BUPIVACAINE INJ/PF LIPOSOME/PF 266 MG/20 ML SDV INJ PRN; +OXYCODONE HCL SR 10 MG TABLET PO PRN; +PANTOPRAZOLE SODIUM 20 MG TABLET.DR PO PRN; +RINGERS SOLUTION,LACTATED 1,000 ML IV PRN
[2019-03-25] MEDS ORDERED: OXYCODONE HCL SR 10 MG TABLET PO ONE (06:00)
[2019-03-25] MEDS ORDERED: PANTOPRAZOLE SODIUM 20 MG TABLET.DR PO ONE (06:01)
[2019-03-25] MEDS ORDERED: CEFAZOLIN INJ 1 GM VIAL ONE (06:01)
[2019-03-25] MEDS ORDERED: MIDAZOLAM 2 MG/2 ML INJ ONE (06:36)
[2019-03-25] MEDS ORDERED: PROPOFOL INJ 200 MG/20 ML VIAL IV ONE ×2 (06:36→09:13)
[2019-03-25] MEDS ORDERED: ONDANSETRON HCL INJ/PF 4 MG/2 ML SDV ONE (06:36)
[2019-03-25] MEDS ORDERED: TRANEXAMIC ACID INJ/PF 1,000 MG/10 ML SDV IV ONE ×2 (06:36→10:30)
[2019-03-25] MEDS ORDERED: THROMBIN (BOVINE) TOPICAL 20000 UNIT VIAL ONE (07:12)
[2019-03-25] MEDS ORDERED: BUPIVACAINE HCL 0.25% /EPINEPHRINE INJ/PF 30 ML SDV ONE (07:13)
[2019-03-25] MEDS ORDERED: DIPHENHYDRAMINE HCL 50 MG/ML VIAL IV PRN ×2 (07:55→08:40)
[2019-03-25] MEDS ORDERED: FENTANYL CITRATE INJ/PF 100 MCG/2 ML AMPUL IV PRN ×3 (07:55)
[2019-03-25] MEDS ORDERED: MEPERIDINE HCL/PF INJ 25 MG/1 ML DISP.SYRIN IV PRN (07:55)
[2019-03-25] MEDS ORDERED: PROMETHAZINE HCL INJ 25 MG/1 ML VIAL IV PRN (07:55)
[2019-03-25] MEDS ORDERED: MORPHINE SULFATE 10 MG/ML INJ IV PRN ×2 (07:55→08:40)
[2019-03-25] MEDS ORDERED: RINGERS SOLUTION,LACTATED 1,000 ML IV PRN (08:40)
[2019-03-25] MEDS ORDERED: OXYCODONE HCL IR 5 MG TABLET PO PRN (08:40)
[2019-03-25] MEDS ORDERED: ZOLPIDEM TARTRATE 5 MG TABLET PO PRN (08:40)
[2019-03-25] MEDS ORDERED: ONDANSETRON 4 MG TAB.RAPDIS PO PRN (08:40)
[2019-03-25] MEDS ORDERED: ONDANSETRON HCL INJ/PF 4 MG/2 ML SDV IV PRN (08:40)
[2019-03-25] MEDS ORDERED: MAG HYDROX/AL HYDROX/SIMETH SUSP 30 ML UDCUP PO PRN (08:40)
[2019-03-25] MEDS ORDERED: ACETAMINOPHEN 325 MG TABLET PO PRN (08:40)
--- NOTE | 2019-03-25 08:45 | Operative Report ---
Operative Report DATE OF SURGERY: 03/25/19 PREOPERATIVE DIAGNOSIS: Right knee arthritis OPERATION: Right knee arthroplasty SURGEON: SANDY PRINCE ANESTHESIA: Spinal TISSUE REMOVED OR ALTERED: Bone to pathology ESTIMATED BLOOD LOSS: 50 PROCEDURE: Implants used: Femur: [place] triathlon size 7 CR uncemented femur Tibia: 6 uncemented tibia Tibial liner: 11 mm CS insert Patella: 38 mm oval uncemented patella Procedure with the patient supine on the operating table the right the limb is prepped and draped in a sterile fashion. The limb was elevated for exsanguination and the tourniquet inflated to 280 torr. A standard midline median parapatellar approach the knee is taken. Access is gained to the femoral canal through the intercondylar notch. Intramedullary alignment instrumentation used to resect 10 mm of distal femur in 5 of valgus. Sizing guide indicated a size 7 femur. Appropriate cutting jig is then used to fashion anterior posterior and chamfer cuts. A trial reduction femurs performed and this is judged to be adequate. Attention was next turned to the tibia. Using an extra medullary alignment system 11 millimeters was resected off the lateral tibial plateau to make up for a medial defect. This is sized to a size 6 tibia. A trial reduction was now performed with a 7 femur and a 6 tibia using a 11 millimeters spacer. It is full extension and central patellofemoral tracking. The articular surface the patella was next resected using an oscillating saw. All trial implants were removed. Above him implants are impacted into position.. the tourniquet was deflated hemostasis obtained the wound is then closed in layers using interrupted Vicryl followed by layla. A sterile compressive dressing was applied and the patient returned to recovery room in satisfactory condition.
[2019-03-25] MEDS: METOPROLOL SUCCINATE 25 MG TAB.SR.24H PO SCH (10:51)
[2019-03-25] MEDS: OXYCODONE HCL SR 10 MG TABLET PO SCH ×2 (10:51→21:06)
[2019-03-25] MEDS: SENNOSIDES/DOCUSATE 8.6-50 MG 1 EACH TABLET PO SCH ×2 (10:51→18:27)
[2019-03-25] MEDS: LORATADINE 10 MG TABLET PO SCH (10:51)
[2019-03-25] MEDS: PRENATAL VITAMIN W DHA CAPSULE PO SCH (10:52)
[2019-03-25] MEDS: IBUPROFEN 800 MG in NORMAL SALINE 250 ML IV SCH (17:01)
[2019-03-25] MEDS: OXYCODONE HCL IR 5 MG TABLET PO PRN (18:27)
[2019-03-25] MEDS ORDERED: VANCOMYCIN HCL 1,000 MG in DEXTROSE 5%-WATER 250 ML IV ONE (20:40)
[2019-03-25] MEDS ORDERED: ATORVASTATIN CALCIUM 10 MG TABLET PO SCH (22:00)
[2019-03-25] MEDS ORDERED: FLUVASTATIN SODIUM 40 MG PO SCH (22:00)
[2019-03-26] MEDS: IBUPROFEN 800 MG in NORMAL SALINE 250 ML IV SCH ×2 (01:11→09:33)
[2019-03-26] MEDS: OXYCODONE HCL IR 5 MG TABLET PO PRN ×3 (02:24→11:44)
[2019-03-26] MEDS ORDERED: PANTOPRAZOLE SODIUM 40 MG TABLET.DR PO SCH (06:00)
[2019-03-26 06:01] LABS: HEMATOCRIT 37.5 % (37.9-51.0); HEMOGLOBIN 12.9 g/dL (13.5-17.0); MEAN CORPUSCULAR HGB CONC 34.4 g/dL (32.0-36.0); MEAN CORPUSCULAR VOLUME 81 fl (80-97); PLATELET COUNT 188 10^3/uL (150-450)
[2019-03-26 06:13] LABS: ANION GAP 6 (5-19); BLOOD UREA NITROGEN 12 mg/dL (7-20); CALCIUM 8.7 mg/dL (8.4-10.2); CARBON DIOXIDE 30 mmol/L (22-30); CHLORIDE 100 mmol/L (98-107); GLUCOSE 121 mg/dL (75-110); POTASSIUM 4.9 mmol/L (3.6-5.0)
--- NOTE | 2019-03-26 06:44 | PDOC DISCHARGE SUMMARY ---
General - Admit/Disc Date/PCP Admission Date/Primary Care Provider: 03/25/19 05:18 JUAN VARGHESE PA-C Discharge Date: 03/26/19 - Additional Information Resuscitation Status: Full Code Discharge Diet: As Tolerated, Regular Discharge Activity: Activity As Tolerated, Balance Activity w/Rest, No tub bath Prescriptions: Oxycodone HCl [Oxy-Ir 5 mg Tablet] 5 mg PO Q6 PRN #40 tablet PRN Reason: For Pain Home Medications: Fluvastatin Sodium [Lescol] 40 mg PO QHS 11/19/18 Loratadine [Claritin 10 mg Tablet] 10 mg PO DAILY 11/19/18 Metoprolol Succinate [Toprol Xl 25 mg Tab.sr] 25 mg PO DAILY 03/16/19 Oxycodone HCl [Oxy-Ir 5 mg Tablet] 5 mg PO Q6 PRN #40 tablet 03/26/19 History of Present Illness History of Present Illness: MANUEL MEADOWS is a 43 year old male 43-year-old white male with progressive right knee pain and functional disability second osteoarthritis. Patient is admitted for elective right knee arthroplasty. Hospital Course Hospital Course: Patient is admitted through the operating room where he undergoes uncomplicated right knee arthroplasty. Is returned to floor in satisfactory condition. He ambulates 120 feet with physical therapy on the day of surgery. His compressive dressing was removed on postop day 1. The underlying dressing is clean dry and intact. Physical Exam Vital Signs: Temp Pulse Resp BP Pulse Ox 36.7 C 79 16 95/52 L 100 03/25/19 23:44 03/25/19 23:44 03/25/19 23:44 03/25/19 23:44 03/25/19 23:44 Intake & Output 03/24/19 03/25/19 03/26/19 06:59 06:59 06:59 Intake Total 0 7426 Output Total 550 Balance 0 6876 Weight 123 kg Physical Exam: Overweight middle-aged white male lying in a hospital bed. is next to him in a recliner. Patient is alert, oriented, appropriate. General appearance: PRESENT: no acute distress, mild distress, well-developed, well-nourished Head exam: PRESENT: normocephalic Respiratory exam: PRESENT: unlabored Cardiovascular exam: PRESENT: RRR Pulses: PRESENT: +1 pedal pulses bilateral Vascular exam: PRESENT: normal capillary refill GI/Abdominal exam: PRESENT: soft Rectal exam: PRESENT: deferred Extremities exam: PRESENT: other - Compressive right knee dressing is removed on postop day 1. Underlying OpSite dressing is clean dry and intact. There is minimal pedal edema. Distal neurovascular examination is intact. Neurological exam: PRESENT: alert, awake, oriented to person, oriented to place, oriented to time, oriented to situation. ABSENT: motor sensory deficit Psychiatric exam: PRESENT: appropriate affect, normal mood. ABSENT: homicidal ideation, suicidal ideation Skin exam: PRESENT: dry, intact, warm. ABSENT: cyanosis, rash Results Laboratory Results: 03/26/19 05:17 03/26/19 05:17 03/26/19 03/26/19 05: 05:17 WBC 10.0 RBC 4.60 Hgb 12.9 L Hct 37.5 L MCV 81 MCH 28.0 MCHC 34.4 RDW 14.0 Plt Count 188 Sodium 135.5 L Potassium 4.9 Chloride 100 Carbon Dioxide 30 Anion Gap 6 BUN 12 Creatinine 1.02 Est GFR ( Amer) > 60 Est GFR (Non-Af Amer) > 60 Glucose 121 H Calcium 8.7 Status: Imported from [facility] Qualifiers - * PATIENT BEING DISCHARGED WITH ANY OF THE FOLLOWING DIAGNOSIS: No VTE patient discharged on overlapping Therapy?: Yes Acute Heart Failure - Is this a Heart Failure Patient?: No Plan Discharge Plan: Patient be discharged home with DME and home health services. Follow-up with Dr. Russell and [facility] for surgery in 2 weeks for staple removal.
[2019-03-26 08:12] VITALS: BP 126/65
[2019-03-26] MEDS: OXYCODONE HCL SR 10 MG TABLET PO SCH (09:05)
[2019-03-26] MEDS: SENNOSIDES/DOCUSATE 8.6-50 MG 1 EACH TABLET PO SCH (09:06)
[2019-03-26] MEDS: PRENATAL VITAMIN W DHA CAPSULE PO SCH (09:06)
[2019-03-26] MEDS: METOPROLOL SUCCINATE 25 MG TAB.SR.24H PO SCH (09:06)
[2019-03-26] MEDS: LORATADINE 10 MG TABLET PO SCH (09:36)
[2019-03-26] MEDS ORDERED: ASPIRIN 81 MG TABLET, ENT COATED PO SCH (10:00)
[2019-03-26] MEDS ORDERED: OXYCODONE HCL IR 5 MG TABLET PO ONE (10:30)
== END 2019-03-26 12:03 | disposition home health service (06) | DRG 470 ==
LOC: INOR 05:18 → 4S 09:44
PROVIDERS: ADMIT Orthopaedic Surgery; ATTEND Orthopaedic Surgery
PROC: 0SRC0JA Replacement of Right Knee Joint with Synthetic Substitute, Uncemented, Open Approach (ICD-10-PCS; principal; 2019-03-25 07:30)
DX: M17.11 Unilateral primary osteoarthritis, right knee (principal); E78.00 Pure hypercholesterolemia, unspecified; I10 Essential (primary) hypertension; J45.909 Unspecified asthma, uncomplicated; G47.33 Obstructive sleep apnea (adult) (pediatric); Z96.652 Presence of left artificial knee joint
CPT/HCPCS: 36415; 80048; 85027; 88305; 88311; 94799; C1713; C1776; J0690; J1741; J2250; J2405; J2704; J3370; J3490; J7050; J7060